=== PATIENT | female | born 1950 | race Caucasian/White ===

== ENCOUNTER → 2017-09-12 | Outpatient (CLI) | payer MEDICARE, BC ==
[2013-09-02 11:00] VITALS: BP 158/75
[~2017-09-12] MED LIST: COLACE 100100 MG/CAP PO; FLONASE0.05 MG/AC; HYDROCHLOROTH12.5 MG PO; OMEPRAZOLE20 MG PO; POTASSIUM CH2 MEQ/ML PO; PRILOSEC 20MG20 MG PO; REGLAN 5MG T5 MG/TAB PO; VERAPAMIL180 MG/TAB PO
[2017-09-12 10:06] LABS: ALBUMIN 3.9 g/dL (3.5-5.0); ALT/SGPT 44 U/L (9-52); AST-SGOT 32 U/L (14-36); BUN/CREATININE RATIO 17.5 (6.0-26.0); CALCIUM 9.3 mg/dL (8.4-10.2); CARBON DIOXIDE 25 mmol/L (22-30); GLUCOSE 136 mg/dL (65-105); POTASSIUM 3.8 mmol/L (3.6-5.0); SODIUM 139 mmol/L (137-145); TOTAL BILIRUBIN 0.7 mg/dL (0.2-1.3); TOTAL PROTEIN 7.7 g/dL (6.3-8.2)
== END ==
LOC: LAB 09:13
PROVIDERS: Family Medicine
DX: I10 Essential (primary) hypertension (principal); E78.00 Pure hypercholesterolemia, unspecified; G43.909 Migraine, unspecified, not intractable, without status migrainosus; Z86.69 Personal history of other diseases of the nervous system and sense organs

== ENCOUNTER → 2017-09-19 | Outpatient (CLI) | payer MEDICARE, BC ==
[2013-09-02 11:00] VITALS: BP 158/75
[2017-09-19 18:30] LABS: HEMATOCRIT 42.3 % (37.0-47.0); HEMOGLOBIN 14.1 g/dL (12.5-16.0); MEAN PLATELET VOLUME 8.7 fl (7.4-10.4); RED BLOOD COUNT 4.33 M/mm3 (4.10-5.30); RED CELL DISTRIBUTION WIDTH 12.9 % (11.5-14.5); WHITE BLOOD COUNT 7.7 K/mm3 (4.8-10.8)
== END ==
LOC: LAB 17:07
PROVIDERS: Family Medicine
DX: I63.432 Cerebral infarction due to embolism of left posterior cerebral artery (principal); F33.8 Other recurrent depressive disorders; M79.601 Pain in right arm; R10.13 Epigastric pain; I10 Essential (primary) hypertension; E78.00 Pure hypercholesterolemia, unspecified; Z00.00 Encounter for general adult medical examination without abnormal findings

== ENCOUNTER → 2018-02-19 | Outpatient (CLI) | payer MEDICARE, BC ==
[2013-09-02 11:00] VITALS: BP 158/75
== END ==
LOC: LAB 11:12
DX: E11.9 Type 2 diabetes mellitus without complications (principal); I63.432 Cerebral infarction due to embolism of left posterior cerebral artery

== ENCOUNTER → 2018-07-24 | Outpatient (CLI) | payer MEDICARE, BC ==
[2013-09-02 11:00] VITALS: BP 158/75
== END ==
LOC: LAB 14:55
DX: E11.9 Type 2 diabetes mellitus without complications (principal); R60.0 Localized edema; M79.606 Pain in leg, unspecified; G89.29 Other chronic pain

== ENCOUNTER → 2019-04-13 | Outpatient (CLI) | payer MEDICARE, BC ==
[2013-09-02 11:00] VITALS: BP 158/75
[2019-04-13 08:44] LABS: ALBUMIN 3.5 g/dL (3.4-4.8)
[2019-04-13 08:45] LABS: CALCIUM 9.4 mg/dL (8.3-10.5)
[2019-04-13 08:47] LABS: TOTAL PROTEIN 7.6 g/dL (6.2-8.1)
[2019-04-13 08:48] LABS: TOTAL BILIRUBIN 0.4 mg/dL (0.2-1.2)
== END ==
LOC: LAB 08:24
PROVIDERS: Family Medicine
DX: E11.9 Type 2 diabetes mellitus without complications (principal); I10 Essential (primary) hypertension; I63.432 Cerebral infarction due to embolism of left posterior cerebral artery

== ENCOUNTER → 2020-07-14 | Outpatient (CLI) | payer MEDICARE, BC ==
[2013-09-02 11:00] VITALS: BP 158/75
[2020-07-14 09:52] LABS: ALBUMIN 3.8 g/dL (3.4-4.8); POTASSIUM 3.9 mmol/L (3.5-5.1)
[2020-07-14 09:53] LABS: CALCIUM 9.9 mg/dL (8.3-10.5)
[2020-07-14 09:54] LABS: TOTAL PROTEIN 8.1 g/dL (6.2-8.1)
[2020-07-14 09:56] LABS: TOTAL BILIRUBIN 0.5 mg/dL (0.2-1.2)
== END ==
LOC: LAB 09:31
PROVIDERS: Family Medicine
DX: E11.9 Type 2 diabetes mellitus without complications (principal); I63.432 Cerebral infarction due to embolism of left posterior cerebral artery; I10 Essential (primary) hypertension

== ENCOUNTER → 2021-03-13 | Outpatient (CLI) | payer MEDICARE, BC ==
[2021-03-13 09:08] LABS: BASO # 0.02 (0.02-0.10); EOS # 0.11 (0.04-0.40); EOS % 1.7 % (1.0-5.0); HEMOGLOBIN 15.1 g/dL (12.5-16.0); LYMPH# 1.98 (1.50-4.00); MEAN CELL VOLUME 96 fl (78-100); MEAN CORPUSCULAR HEMOGLOBIN 33 pg (27-31); MEAN CORPUSCULAR HGB CONC 34 g/dL (33-37); MEAN PLATELET VOLUME 8.5 fl (7.4-10.4); MONO # 0.67 (0.20-0.80); NEU # 3.55 (1.40-6.50); PLATELET COUNT 292 K/mm3 (130-400); RED CELL DISTRIBUTION WIDTH 12.5 % (11.5-14.5); WHITE BLOOD COUNT 6.3 K/mm3 (4.8-10.8)
[2021-03-13 09:20] LABS: POTASSIUM 3.2 mmol/L (3.5-5.1)
[2021-03-13 09:37] LABS: PROTHROMBIN TIME 9.9 SECONDS (9.0-12.0)
== END ==
LOC: LAB 08:29
PROVIDERS: Family Medicine
DX: E11.9 Type 2 diabetes mellitus without complications (principal); H35.61 Retinal hemorrhage, right eye

== ENCOUNTER → 2021-04-17 | Outpatient (CLI) | payer MEDICARE, BC ==
[2021-04-17 09:38] LABS: CALCIUM 9.2 mg/dL (8.3-10.5)
== END ==
LOC: LAB 08:48
PROVIDERS: Family Medicine
DX: E87.6 Hypokalemia (principal); I10 Essential (primary) hypertension

== ENCOUNTER → 2021-05-10 | Outpatient (CLI) | payer MEDICARE, BC | LOC: RAD 11:15 | DX: M51.36 Other intervertebral disc degeneration, lumbar region (principal); M79.604 Pain in right leg; Z96.89 Presence of other specified functional implants ==

== ENCOUNTER → 2021-05-18 | Outpatient (CLI) | payer MEDICARE, BC | LOC: RAD 16:11 | DX: M25.551 Pain in right hip (principal); M25.552 Pain in left hip ==

== ENCOUNTER → 2021-05-24 | Outpatient (CLI) | payer MEDICARE, BC ==
--- NOTE | 2021-05-24 14:04 | NUR ---
EKG PRINTED AND RHYTHM STRIP PRINTED. PATIENT TO RETURN TO DR CARRILLO'S OFFICE.
== END ==
LOC: AMSURD 13:40
DX: I10 Essential (primary) hypertension (principal); I49.49 Other premature depolarization

== ENCOUNTER → 2021-06-26 | Outpatient (CLI) | payer MEDICARE, BC ==
[2021-06-26 09:21] LABS: CALCIUM 9.6 mg/dL (8.3-10.5)
== END ==
LOC: LAB 08:44
PROVIDERS: Family Medicine
DX: E87.6 Hypokalemia (principal); R73.9 Hyperglycemia, unspecified; I10 Essential (primary) hypertension

== ENCOUNTER → 2021-07-06 | Outpatient (CLI) | payer MEDICARE, BC | LOC: RAD 16:45 | DX: M48.061 Spinal stenosis, lumbar region without neurogenic claudication (principal); M51.16 Intervertebral disc disorders with radiculopathy, lumbar region ==